=== PATIENT | female | born 1960 | race Caucasian/White ===

== ENCOUNTER 2020-11-16 00:58 | Inpatient (IN) | payer OTHER ==
[~2020-11-16] VITALS: Ht 160 cm; Wt 97.1 kg
--- NOTE | 2020-11-16 00:59 | NUR ---
PT AAOX4. BIBEMS FROM HOME C/O SYNCOPE AT HOME. PER PT DECREASE APPETITIE X12 DAYS, +DIARRHEA. PT PLACED IN BED 8 ON CURBING STONECUTTER AND PULSE OX. VSS. NO ACUTE DISTRESS NOTED.
--- NOTE | 2020-11-16 01:06 | NUR ---
PT PROVIDED WITH MORE BLANKETS. REMAINS ON CARIDAC MONITOR AND PULSE OX. PLACED IN COLLAR.
[2020-11-16] MEDS ORDERED: ONDANSETRON HCL/PF 4 MG/2 ML VIAL ONE (01:29)
[2020-11-16] MEDS ORDERED: ONDANSETRON HCL/PF 4 MG/2 ML VIAL IVP ONE (01:30)
[2020-11-16] MEDS ORDERED: IV NS 0.9% 1,000 ML BAG IV ONE (01:30)
[2020-11-16 01:46] LABS: BASOPHILS # (AUTO) 0.1 K/uL (0.0-0.2); BASOPHILS % (AUTO) 0.7 % (0.0-2.0); EOSINOPHILS % (AUTO) 1.3 % (0.0-6.0); HEMATOCRIT 37 % (33-45); LYMPHOCYTES # (AUTO) 3.7 K/uL (0.8-4.8); LYMPHOCYTES % (AUTO) 32.2 % (20.0-44.0); MEAN CORPUSCULAR HGB CONC 33 g/dl (31.0-36.0); MEAN CORPUSCULAR VOLUME 88 fL (82-100); MONOCYTES # (AUTO) 0.6 K/uL (0.1-1.30); MONOCYTES % (AUTO) 5.4 % (2.0-12.0); NEUTROPHILS # (AUTO) 6.9 K/uL (1.8-8.9); NEUTROPHILS % (AUTO) 60.4 % (43.0-81.0); PLATELET COUNT (AUTO) 264 K/uL (150-450); RED BLOOD CELL COUNT(AUTO) 4.16 MIL/uL (4.0-5.2); WHITE BLOOD COUNT (AUTO) 11.4 K/uL (4.3-11.0)
[2020-11-16 01:54] LABS: CALCIUM, SERUM 8.9 mg/dL (8.5-10.1); CARBON DIOXIDE 21 mmol/L (21-32); CHLORIDE 106 mmol/L (98-107); GLUCOSE 126 mg/dL (74-106); POTASSIUM 3.4 mmol/L (3.5-5.1); SODIUM SERUM 140 mmol/L (136-145); UREA NITROGEN, BLOOD 8 mg/dL (7-18)
[2020-11-16 02:00] LABS: ALANINE AMINOTRANSFERASE 21 U/L (12-78); ALBUMIN 3.4 g/dL (3.4-5.0); ALKALINE PHOSPHATASE 68 U/L (46-116); ASPARTATE AMINOTRANSFERASE 12 U/L (15-37); BILIRUBIN,DIRECT 0.1 mg/dL (0.0-0.2); BILIRUBIN,TOTAL 0.5 mg/dL (0.2-1.0); TOTAL PROTEIN, SERUM 7.2 g/dL (6.4-8.2)
--- NOTE | 2020-11-16 02:51 | NUR ---
PT REFUSES TO BE IN A C COLLAR. LUANA MYERS AWARE.
--- NOTE | 2020-11-16 03:00 | NUR ---
PT AMBULATED TO THE RESTROOM WITH STEADY GAIT.
[2020-11-16] MEDS ORDERED: HYDROCODONE/APAP 5/325MG TABLET ONE (03:28)
[2020-11-16] MEDS ORDERED: ACETAMINOPHEN ES 500 MG TABLET ONE (03:33)
--- NOTE | 2020-11-16 03:53 | NUR ---
PT DAUGHTER PHU .
--- NOTE | 2020-11-16 04:24 | NUR ---
DAUGHTER'S AT BEDSIDE. SPEAKING TO PT.
[2020-11-16] MEDS ORDERED: ACETAMINOPHEN 325 MG TABLET PO ONE (04:30)
[2020-11-16] MEDS ORDERED: IV NS 0.9% 1,000 ML IV ONE (04:30)
--- NOTE | 2020-11-16 05:00 | NUR ---
REPORT GIVEN TO JAKOB SCOTT FOR [facility]
--- NOTE | 2020-11-16 05:03 | NUR ---
[facility] PAGED FOR ADMISSION.
[2020-11-16] MEDS ORDERED: ATOR40TA PO (05:22)
[2020-11-16] MEDS ORDERED: METF-440 PO (05:22)
[2020-11-16] MEDS ORDERED: Z GUARD REMEDY 2 OZ OINT TP PRN (05:30)
[2020-11-16] MEDS ORDERED: MAGNESIUM HYDROXIDE 30 ML UDC PO PRN (05:30)
[2020-11-16] MEDS ORDERED: ACETAMINOPHEN 325 MG TABLET PO PRN (05:30)
[2020-11-16] MEDS ORDERED: IV NS 0.9% 1,000 ML IV PRN (05:30)
[2020-11-16] MEDS ORDERED: ONDANSETRON HCL/PF 4 MG/2 ML VIAL IVP PRN (05:30)
[2020-11-16] MEDS ORDERED: MAG HYDROX/AL HYDROX/SIMETH 30 ML UDC PO PRN (05:30)
--- NOTE | 2020-11-16 05:39 | NUR ---
PT TRANSFERED PER ACLS PROTOCOL
[2020-11-16 05:40] VITALS: BP_SYST 106; BP_SYST 107; BP_SYST 108; BP_DIAS 58; BP_DIAS 66; BP_DIAS 77
--- NOTE | 2020-11-16 05:40 | NUR ---
RN TELEHEALTH NOTE RECEIVED PATIENT VIA GURNEY. AMBULATED TO BED WITH STAND BY ASSISTANCE. GAIT IS STEADY BUT WEAK. PATIENT STATES SHE FEELS DIZZY. TOLERATING ROOM AIR. RESPIRATIONS ARE EVEN AND UNLABORED. NO S/S SOB NOTED. EXTERNAL TELE MONITOR READS SINUS RHYTHM HR 75. IN NO APPARENT DISTRESS. IV ACCESS IN RIGHT HAND#20 PATENT AND SALINE LOCKED. MANAGER SCIENCE OBTAINED VITALS SIGNS AND COMPLETED BELONGING LIST. INITIAL PHYSICAL ASSESSMENT COMPLETE AT THIS TIME, SKIN INTACT. BED IS LOW AND LOCKED, HOB ELEVATED IN SEMI FOWLERS,SIDE RAILS UP X2, CALL LIGHT WITHIN REACH, EXPLAINED USE. WILL CONTINUE TO MONITOR FOR REMAINDER OF SHIFT, AND ENDORSE TO ONCOMING SHIFT FOR CONTINUATION OF CARE.
[2020-11-16] MEDS ORDERED: PANTOPRAZOLE 40 MG TABLET.DR PO SCH (07:30)
[2020-11-16 08:00] VITALS: BP 114/59
[2020-11-16] MEDS: METRONIDAZOLE 500 MG TABLET PO SCH ×2 (08:07→14:24)
[2020-11-16 08:18] LABS: BILIRUBIN,URINE NEGATIVE (NEGATIVE); LEUKOCYTE ESTERASE ,URINE NEGATIVE (NEGATIVE); NITRITE, URINE NEGATIVE (NEGATIVE); PROTEIN,URINE NEGATIVE (NEGATIVE); UGLUCOSE NEGATIVE (NEGATIVE); UROBILINOGEN,URINE 0.2 EU/dL (0.2)
[2020-11-16 08:22] LABS: COLOR,URINE STRAW (YELLOW)
[2020-11-16] MEDS ORDERED: METFORMIN 500 MG TABLET PO SCH (09:00)
[2020-11-16] MEDS: POTASSIUM CHLORIDE 20 MEQ TAB.PRT.SR PO SCH ×3 (09:20→11:39)
[2020-11-16 09:40] LABS: MAGNESIUM 2.3 mg/dL (1.8-2.4)
[2020-11-16 09:44] LABS: RBC,URINE 0-2 /HPF (0-2); SQUAMOUS EPITHELIAL CELL,UR Few /HPF (None Seen); WBC,URINE 0-2 /HPF (0-3)
[2020-11-16 09:47] LABS: BACTERIA,URINE Few /HPF (None Seen)
[2020-11-16 09:56] LABS: THYROID STIMULATING HORMONE 4.517 uIU/mL (0.358-3.74)
[2020-11-16 12:00] VITALS: BP 146/69
[2020-11-16] MEDS ORDERED: INSULIN REGULAR, HUMAN 100 UNIT/ML 3 ML VIAL SQ PRN (15:30)
[2020-11-16] MEDS ORDERED: BLOOD SUGAR DIAGNOSTIC 1 EACH STRIP VI SCH (15:30)
[2020-11-16] MEDS ORDERED: DEXTROSE 50%-WATER 50 ML DISP.SYRIN IV PRN (15:30)
[2020-11-16] MEDS ORDERED: *INSULIN REGULAR(HUMULIN R)HUM 100 UNIT/ML VIAL SQ PRN (15:30)
[2020-11-16] MEDS ORDERED: METF-866 PO (15:44)
[2020-11-16 16:00] VITALS: BP 130/60
--- NOTE | 2020-11-16 17:01 | NUR ---
MANAGER RFID NOTE Cynthia is A/ox4, in no acute distress, VSS on room air. She has been medically cleared by MD for discharge. Skin remains intact. IV removed, ID band removed. All needs met, all due medications given. Independent with self-care. DC instructions given, verbalized understanding. Picked up by family en route to home. sill worker and MD aware.
[2020-11-16] MEDS ORDERED: ATORVASTATIN 40 MG TABLET PO SCH (22:00)
== END 2020-11-16 16:50 | disposition home or self-care (01) | DRG 48 ==
LOC: ER 00:58 → TELE1 05:28
PROVIDERS: ADMIT Internal Medicine; ATTEND Internal Medicine
DX: G90.8 Other disorders of autonomic nervous system (principal); E87.2 Acidosis; E11.9 Type 2 diabetes mellitus without complications; E78.5 Hyperlipidemia, unspecified; W18.30XA Fall on same level, unspecified, initial encounter; Y92.89 Other specified places as the place of occurrence of the external cause; I10 Essential (primary) hypertension; Z88.8 Allergy status to other drugs, medicaments and biological substances; E87.6 Hypokalemia; R19.7 Diarrhea, unspecified; T38.3X5A Adverse effect of insulin and oral hypoglycemic [antidiabetic] drugs, initial encounter; Y92.9 Unspecified place or not applicable
CPT/HCPCS: 36415; 70450-TC; 71045-TC; 72125-TC; 72220-TC; 80048-TC; 80061-TC; 80076-TC; 81001; 82728-TC; 83540-TC; 83735-TC; 84439-TC; 84443-TC; 84484-TC; 85025-TC; 85730-TC; 87045-TC; 87081-TC; 87177; 87209; 93307-TC; 93880-TC; C9803; G0378; J1815; J2405; J7030; L0172

== ENCOUNTER 2022-05-12 13:29 | Inpatient (IN) | payer MEDICAID, OTHER ==
[~2022-05-12] VITALS: Ht 157.5 cm; Wt 79.4 kg
[~2022-05-12 13:29] MED LIST: ATOR40TA PO; METF-866 PO
--- NOTE | 2022-05-12 13:45 | NUR ---
BIBDAUGHTER C/O DIZZINESS AND CHEST PAIN SINCE LAST NIGHT, GOT WORSE MANUFACTURING PROCESS ENGINEER WHILE LOOKING AT "PROPERTIES". AMBULATORY, PLACED IN BED, AAOX4, BREATHING EVEN AND UNLABORED SATURATING AT 98%RA, ATTACHED TO MONITOR SHOWS NORMAL SINUS RHYTHM AK- 75
--- NOTE | 2022-05-12 13:50 | NUR ---
tech at bedside for ekg
--- NOTE | 2022-05-12 14:01 | NUR ---
MOVE SHEET SUBMITTED.
--- NOTE | 2022-05-12 14:01 | NUR ---
BLOOD DRAWN AND SENT TO LAB
--- NOTE | 2022-05-12 14:04 | NUR ---
SWAB FOR COVID19 SENT TO LAB
[2022-05-12 14:09] LABS: BASOPHILS # (AUTO) 0.1 K/uL (0.0-0.2); BASOPHILS % (AUTO) 0.8 % (0.0-2.0); EOSINOPHILS % (AUTO) 1.5 % (0.0-6.0); HEMATOCRIT 41 % (33-45); HEMOGLOBIN 13.6 g/dL (11.5-14.8); LYMPHOCYTES # (AUTO) 2.5 K/uL (0.8-4.8); LYMPHOCYTES % (AUTO) 38.2 % (20.0-44.0); MEAN CORPUSCULAR HGB CONC 33 g/dl (31.0-36.0); MEAN CORPUSCULAR VOLUME 90 fL (82-100); MONOCYTES # (AUTO) 0.4 K/uL (0.1-1.30); NEUTROPHILS # (AUTO) 3.4 K/uL (1.8-8.9); NEUTROPHILS % (AUTO) 53.5 % (43.0-81.0); PLATELET COUNT (AUTO) 211 K/uL (150-450); RED BLOOD CELL COUNT(AUTO) 4.54 MIL/uL (4.0-5.2); WHITE BLOOD COUNT (AUTO) 6.4 K/uL (4.3-11.0)
[2022-05-12] MEDS ORDERED: FAMOTIDINE/PF INJ 20 MG/2 ML VIAL IV ONE ×2 (15:24→15:30)
[2022-05-12 15:31] LABS: CALCIUM, SERUM 9.1 mg/dL (8.5-10.1); CARBON DIOXIDE 26 mmol/L (21-32); CHLORIDE 105 mmol/L (98-107); CREATININE 1.2 mg/dL (0.6-1.3); GLUCOSE 116 mg/dL (74-106); SODIUM SERUM 140 mmol/L (136-145); UREA NITROGEN, BLOOD 8 mg/dL (7-18)
[2022-05-12] MEDS ORDERED: MORPHINE SULFATE INJ 2 MG/ML DISP.SYRIN ONE (15:49)
[2022-05-12 15:51] LABS: ALANINE AMINOTRANSFERASE 29 U/L (12-78); ALBUMIN 3.7 g/dL (3.4-5.0); ALKALINE PHOSPHATASE 59 U/L (46-116); ASPARTATE AMINOTRANSFERASE 16 U/L (15-37); BILIRUBIN,DIRECT 0.1 mg/dL (0.0-0.2); BILIRUBIN,TOTAL 0.5 mg/dL (0.2-1.0); TOTAL PROTEIN, SERUM 7.4 g/dL (6.4-8.2)
[2022-05-12] MEDS ORDERED: MORPHINE SULFATE INJ 2 MG/ML DISP.SYRIN IV ONE (16:00)
--- NOTE | 2022-05-12 16:45 | NUR ---
[facility] CALLED BOOK ILLUSTRATOR PAGED.
--- NOTE | 2022-05-12 17:09 | NUR ---
GOT BED 313-1 ADMITTING NOTIFIED.
[2022-05-12] MEDS ORDERED: Z GUARD REMEDY 4 OZ OINT TP PRN (17:30)
[2022-05-12] MEDS: ENOXAPARIN SODIUM 40 MG/0.4 ML DISP.SYRIN SQ SCH (17:30)
[2022-05-12] MEDS ORDERED: TEMAZEPAM 15 MG CAPSULE PO PRN (17:30)
[2022-05-12] MEDS ORDERED: MAGNESIUM HYDROXIDE 30 ML UDC PO PRN (17:30)
[2022-05-12] MEDS ORDERED: ONDANSETRON HCL/PF 4 MG/2 ML VIAL IVP PRN (17:30)
[2022-05-12] MEDS ORDERED: NITROGLYCERIN 0.4 MG/TAB BOTTLE SL PRN (17:30)
[2022-05-12] MEDS ORDERED: MAG HYDROX/AL HYDROX/SIMETH 30 ML UDC PO PRN (17:30)
--- NOTE | 2022-05-12 17:31 | NUR ---
REPORT GIVEN TO BRIJESH RN ROOM 312-1 FOR LUIS
[2022-05-12 18:00] VITALS: BP 139/72
[2022-05-12] MEDS ORDERED: MORPHINE SULFATE INJ 4 MG/ML DISP.SYRIN IV PRN (18:00)
[2022-05-12] MEDS: ACETAMINOPHEN 325 MG TABLET PO PRN (18:08)
--- NOTE | 2022-05-12 18:55 | NUR ---
VOIP ENGINEER NOTES PATIENT RECEIVED VIA RWOLF POINT. PATIENT IS A/O X 4. PATIENT IS BREATHING EVENLY AND UNLABORED ON ROOM AIR. WITH HEPLOCK RAC #20G. AT NO SIGNS OF DISTRESS NOTED. VITALS SIGNS OF BP:139/72, RR:20, NM:72, TEMP:98.6, O2 SAT:99%. PATIENT DENIES OPAIN OR DISCOMFORT AT THIS TIME.ATTACHED EXTERNAL MONITOR: SINUS RHYTHM AT 70S. SKIN ASSESSMENT PERFORMED. NO EDEMA PRESENT. BOWELS SOUNDS ACTIVE.PATIENT WAS ORIENTED TO ROOM AND HOW TO USE CALL LIGHT. BELONGINGS ACCOUNTED FOR. SAFETY MEASURES IN PLACE; BED IN LOW, LOCKED POSITION; SIDE RAILS UP X 2;WILL ENDORSED TO SPECIAL DELIVERY CLERK FOR [facility]
[2022-05-12 20:00] VITALS: BP_SYST 120; BP_SYST 125; BP_DIAS 42; BP_DIAS 62
--- NOTE | 2022-05-12 20:35 | NUR ---
LEAF BLENDER NOTES RECEIVED LYING ON BED A/O X4,BREATHING NORMAL,RUSSELL CHEST PAIN BUT PAIN ON RIGHT SIDE OF HER NECK.SALINE LOCK RIGHT AC INTACT AND PATENT.NOTED SKIN TAG,APPEARS INFECTED ON RIGHT UPPER THIGH,SMALL BLISTER THE POP OUT BELOW RIGHT BREAST,WITH SLIGHT REDNESS NOTED.CALL LIGHT IN REACH,NEEDS ANTICIPATED.
--- NOTE | 2022-05-12 21:45 | NUR ---
WATCHSTANDER NOTES FEELING HUNGRY,GIVEN TUNA SANDWICH AND WARM TEA PER PATIENT REQUEST.
[2022-05-12] MEDS: HYDROCODONE/APAP 5/325MG TABLET PO PRN (22:01)
--- NOTE | 2022-05-12 22:01 | NUR ---
LEAF STRIPPER NOTES PAIN MANAGEMENT C/O PAIN RIGHT SHOULDER,LEFT SIDE RIBS 6/10 ON PAIN SCALE.MEDICATED WITH NORCO 5/325MG,1TAB PO ORDERED.
[2022-05-13] VITALS: BP 103/49
[2022-05-13] MEDS: ACETAMINOPHEN 325 MG TABLET PO PRN ×2 (03:11→10:24)
--- NOTE | 2022-05-13 03:11 | NUR ---
SHAKE SAWYER NOTES HAVING HEADACHE,TYLENOL 650MG PO GIVEN FOR MILD PAIN. ABD PER PATIENT REQUEST.
[2022-05-13 06:32] LABS: BASOPHILS % (AUTO) 0.7 % (0.0-2.0); EOSINOPHILS % (AUTO) 2.4 % (0.0-6.0); HEMATOCRIT 37 % (33-45); HEMOGLOBIN 12.3 g/dL (11.5-14.8); LYMPHOCYTES % (AUTO) 53.2 % (20.0-44.0); MEAN CORPUSCULAR HGB CONC 33 g/dl (31.0-36.0); MEAN CORPUSCULAR VOLUME 90 fL (82-100); MONOCYTES # (AUTO) 0.5 K/uL (0.1-1.30); MONOCYTES % (AUTO) 8.1 % (2.0-12.0); NEUTROPHILS % (AUTO) 35.6 % (43.0-81.0); PLATELET COUNT (AUTO) 174 K/uL (150-450); RED BLOOD CELL COUNT(AUTO) 4.09 MIL/uL (4.0-5.2); WHITE BLOOD COUNT (AUTO) 5.7 K/uL (4.3-11.0)
[2022-05-13 06:36] LABS: CALCIUM, SERUM 8.6 mg/dL (8.5-10.1); CREATININE 0.9 mg/dL (0.6-1.3); MAGNESIUM 2.2 mg/dL (1.8-2.4); PHOSPHORUS 5.3 mg/dL (2.5-4.9); POTASSIUM 3.6 mmol/L (3.5-5.1)
--- NOTE | 2022-05-13 06:45 | NUR ---
FUNDRAISING SALE REPRESENTATIVE NOTES FAIRLY RESTED AT NIGHT,HEADACHE IMPROVED WITH TYLENOL,NO EPISODE OF CHEST PAIN,CALL LIGHT IN REACH,NEEDS ATTENDED.
--- NOTE | 2022-05-13 07:15 | NUR ---
CONE BAKER MACHINE NOTES RECEIVED PATIENT A/O X 4, ABLE TO MAKE NEEDS KNOWN. PATIENT IS ON ROOM AIR, BREATHING EVENLY AND UNLABORED, WITH NO SIGNS OF RESPIRATORY DISTRESS. WITH HEPLOCK RAC #20G, ON SALINE, PATENT AND INTACT. ON EXTERNAL SALESPERSON HEARING AIDS: SINUS RHYTHM AT 60S. SAFETY MEASURES IN PLACE; BED IN LOW, LOCKED POSITION; SIDE RAILS UP X 2, CALL LIGHT WITHIN REACH AT ALL TIMES; WILL CONTINUE WITH PLAN OF CARE.
[2022-05-13 07:37] LABS: THYROID STIMULATING HORMONE 2.906 uIU/mL (0.358-3.74)
[2022-05-13 07:57] LABS: CHOLESTEROL 230 mg/dL (<200); HDL CHOLESTEROL 48 mg/dL (40-60); LDL 123 mg/dL (0-99); TRIGLYCERIDES 164 mg/dL (30-150)
[2022-05-13 08:00] VITALS: BP 114/60
[2022-05-13] MEDS: PANTOPRAZOLE 40 MG TABLET.DR PO SCH (08:00)
[2022-05-13] MEDS ORDERED: ASPIRIN 81 MG TAB.CHEW PO SCH (09:00)
[2022-05-13] MEDS ORDERED: IOHEXOL-350 100 ML VIAL IV ONE (10:39)
[2022-05-13] MEDS ORDERED: METOPROLOL TARTRATE INJ 5 MG/5 ML AMPUL ONE (10:40)
[2022-05-13] MEDS ORDERED: NITROGLYCERIN 0.4 MG/TAB BOTTLE ONE (10:40)
[2022-05-13] MEDS ORDERED: CT SWABBABLE VALVE TRANS SET 1 EA INFUS.SET MC ONE (10:40)
[2022-05-13] MEDS ORDERED: IV NS 0.9% 250 ML IV ONE (10:40)
[2022-05-13] MEDS ORDERED: NITROGLYCERIN 0.4 MG/TAB BOTTLE SL ONE (11:00)
[2022-05-13] MEDS ORDERED: METOPROLOL TARTRATE INJ 5 MG/5 ML AMPUL IVP PRN (11:00)
[2022-05-13 12:00] VITALS: BP 101/55
[2022-05-13] MEDS: HYDROCODONE/APAP 5/325MG TABLET PO PRN ×2 (14:27→20:06)
[2022-05-13] MEDS ORDERED: ALPRAZOLAM 0.25 MG TABLET PO PRN (15:30)
[2022-05-13 16:00] VITALS: BP 119/71
[2022-05-13] MEDS ORDERED: CALCIUM CARBONATE 500 MG TAB.CHEW PO PRN (17:00)
--- NOTE | 2022-05-13 18:48 | NUR ---
REPORTING PROCESS CONSULTANT CLOSING NOTES PATIENT A/O X 4, ABLE TO MAKE NEEDS KNOWN. PATIENT IS ON ROOM AIR, BREATHING EVENLY AND UNLABORED, WITH NO SIGNS OF RESPIRATORY DISTRESS. WITH HEPLOCK RAC #20G, ON SALINE, PATENT AND INTACT. ON EXTERNAL REGIONAL SALES REPRESENTATIVE: SINUS RHYTHM AT 60S. SAFETY MEASURES IN PLACE; BED IN LOW, LOCKED POSITION; SIDE RAILS UP X 2, CALL LIGHT WITHIN REACH AT ALL TIMES; WILL ENDORSE TO NEXT SHIFT FOR CONTINUITY OF CARE.
[2022-05-13 20:00] VITALS: BP 103/60
--- NOTE | 2022-05-13 20:39 | NUR ---
received in bed alert and orientated talkative about her health snack given upon her request moving all extremities review the call light with the patient
[2022-05-13] MEDS: ENOXAPARIN SODIUM 40 MG/0.4 ML DISP.SYRIN SQ SCH (21:00)
--- NOTE | 2022-05-14 04:24 | NUR ---
CLOSING NOTES: IN BED LYING ON HER LEFT SIDE AT THIS TIME ASLEEP RESP EVEN AND UNLABORED ON TELE SR ON THE MONITOR THIS NIGHT MEDICATED X1 FOR PAIN AND EFFECTIVE NORCO TAB 1
[2022-05-14] MEDS: PANTOPRAZOLE 40 MG TABLET.DR PO SCH (07:46)
[2022-05-14 08:00] VITALS: BP_SYST 122; BP_DIAS 79; BP_DIAS 89
--- NOTE | 2022-05-14 08:00 | NUR ---
RN OPENING NOTES RECEIVED PATIENT IN BED A/O X 4. PATIENT IS BREATHING EVENLY AND UNLABORED ON ROOM AIR. WITH SALINE LOCK RAC #20G. NO SIGNS OF DISTRESS NOTED. VITALS SIGNS OF BP:122/89, HR 63, RR15, TEMP. 97.8, O2 SATURATION 100%. PATIENT DENIES PAIN OR DISCOMFORT AT THIS TIME.ATTACHED EXTERNAL MONITOR: SINUS RHYTHM AT 70S. NO EDEMA PRESENT. BOWELS SOUNDS ACTIVE.PATIENT IS ORIENTED. SAFETY MEASURES IN PLACE; BED IN LOW, LOCKED, CALL LIGHT WITHIN PATIENTS REACH.
--- NOTE | 2022-05-14 08:30 | NUR ---
RN NOTES PATIENT IS TRANSFERRED TO [facility]. TELEMETRY MONITORING IS DISCONTINUED PER DOCTORS ADVICE.
--- NOTE | 2022-05-14 08:40 | NUR ---
MS RN NOTE SEEN BY DR. SAWYER DISCUSSED RESULTS TO PATIENT AND DISCHARGE INSTRUCTIONS.
[2022-05-14] MEDS ORDERED: ATORVASTATIN 10 MG TABLET PO SCH (09:00)
[2022-05-14] MEDS: ACETAMINOPHEN 325 MG TABLET PO PRN (10:18)
--- NOTE | 2022-05-14 10:20 | NUR ---
RN NOTES PATIENT COMPLAINS FOR PAIN ON HER LEFT SHOULDER. HYDROCODONE IS TO BE GIVEN BUT PATIENT CHANGED HER MIND AND WANTED XANAX AND TYLENOL INSTEAD. HYDROCODONE IS DISPOSED IN THE RX ELIMINATOR SOLUTION AND WAS WITNESSED BY ANOTHER RN AND WAS DOCUMENTED
[2022-05-14] MEDS ORDERED: ATOR10TA PO (10:25)
[2022-05-14 12:00] VITALS: BP 122/79
--- NOTE | 2022-05-14 12:30 | NUR ---
MS RN NOTE REFUSED TO HAVE PICTURES TAKEN AT THIS POINT BUT WAS SEEN BY MATHEW OF WOUND TEAM.
--- NOTE | 2022-05-14 13:07 | NUR ---
MS COMMERCIAL MANAGER NOTES RECEIVED DISCHARGE ORDER. PATIENT IS A/O X4, ABLE TO MAKE NEEDS KNOWN. SALINE LOCK FROM RIGHT FOREARM IS REMOVED. PATIENT IS BREATHING EVENLY AND UNLABORED ON ROOM AIR. NO SIGNS OF DISTRESS NOTED. PATIENT DOES NOT COMPLAIN ANY PAIN THIS TIME. PATIENT WAS GIVEN DISCHARGE INSTRUCTIONS BOTH VERBALLY AND IN WRITTEN FORM. PATIENT VERBALIZES UNDERSTANDING. PATIENT BELONGING ACCOUNTED FOR, PATIENT BELONGING CHECK LIST SIGNED. PATIENT LEFT THE UNIT IN A STABLE CONDITION. PATIENT IS ACCOMPANIED BY CONTINUOUS IMPROVEMENT DIRECTOR TO THE LOBBY PATIENT LEFT VIA PRIVATE CAR WITH HER DAUGHTER.
== END 2022-05-14 13:30 | disposition home or self-care (01) | DRG 203 ==
LOC: ER 13:33 → TELE 17:17 → MED 05-14 10:09
PROVIDERS: ADMIT Nurse Practitioner Acute Care; ATTEND Internal Medicine
DX: M94.0 Chondrocostal junction syndrome [Tietze] (principal); E32.8 Other diseases of thymus; E11.42 Type 2 diabetes mellitus with diabetic polyneuropathy; Z20.822 Contact with and (suspected) exposure to COVID-19; E78.5 Hyperlipidemia, unspecified; I10 Essential (primary) hypertension; K21.9 Gastro-esophageal reflux disease without esophagitis; Z88.1 Allergy status to other antibiotic agents; Z98.891 History of uterine scar from previous surgery; F41.9 Anxiety disorder, unspecified; F17.210 Nicotine dependence, cigarettes, uncomplicated; E66.9 Obesity, unspecified; Z68.32 Body mass index [BMI] 32.0-32.9, adult; E04.2 Nontoxic multinodular goiter; Z88.6 Allergy status to analgesic agent
CPT/HCPCS: 36415; 71045-TC; 75574; 76536-TC; 80048-TC; 80061-TC; 80076-TC; 82962-TC; 83735-TC; 83880; 84100-TC; 84443-TC; 84484-TC; 85025-TC; 87081-TC; 93307-TC; C9803; G0378; J1650; J2270; J3490; J7050; Q9967

== ENCOUNTER 2022-06-13 14:51 | Emergency (ER) | payer MEDICAID, OTHER ==
[~2022-06-13] VITALS: Ht 160 cm; Wt 79.4 kg
[~2022-06-13 14:51] MED LIST changes: +ATOR10TA PO; -ATOR40TA PO; -METF-866 PO
--- NOTE | 2022-06-13 15:44 | NUR ---
DR SCHAEFER AT BEDSIDE
--- NOTE | 2022-06-13 16:40 | NUR ---
COVID SWAB, FLU SWAB AND STREP SWAB COLLECTED AND SENT TO LAB
--- NOTE | 2022-06-13 17:38 | NUR ---
US TECH AT BEDSIDE. NEGATIVE FOR BLOOD CLOTS
[2022-06-13] MEDS ORDERED: IBUP-1955 PO (19:47)
[2022-06-13 20:01] VITALS: BP 131/81
--- NOTE | 2022-06-13 20:01 | NUR ---
Patient discharged to home in stable condition. Written and verbal after care instructions given. Patient verbalizes understanding of instruction.
== END 2022-06-13 20:02 | disposition home or self-care (01) ==
LOC: ER 15:02
DX: R68.84 Jaw pain (principal); I88.9 Nonspecific lymphadenitis, unspecified; M79.605 Pain in left leg; E78.5 Hyperlipidemia, unspecified; I10 Essential (primary) hypertension; K21.9 Gastro-esophageal reflux disease without esophagitis; E11.9 Type 2 diabetes mellitus without complications; Z88.6 Allergy status to analgesic agent; Z88.1 Allergy status to other antibiotic agents; Z79.899 Other long term (current) drug therapy; Z20.822 Contact with and (suspected) exposure to COVID-19
CPT/HCPCS: 99284; 93971; 87426; 87804 ×2; 87880; C9803; 86403-TC

== ENCOUNTER 2022-10-27 05:34 | Emergency (ER) | payer MEDICAID, OTHER ==
[~2022-10-27] VITALS: Ht 157.5 cm; Wt 78.9 kg
[~2022-10-27 05:34] MED LIST changes: +IBUP-1955 PO
--- NOTE | 2022-10-27 06:00 | NUR ---
URINE SPECIMEN SENT TO LAB
--- NOTE | 2022-10-27 06:00 | NUR ---
[id number] FROM HOME WITH INITIAL COMPLAINT OF SEVERE ABDOMINAL PAIN (GASSY) CASINO FLOOR PERSON. NO MEDS GIVEN AT HOME, BROUGHT TO ER. PATIENT PASS GAS AND WAS RELIEVE. NO PAIN AT THE MOMENT DURING ASSESSMENT. PATIENT IS AOX4. ABLE TO MAKE NEEDS KNOWN. ACCOMPANIED BY DAUGHTER. VITALS CHECKED.
--- NOTE | 2022-10-27 06:10 | NUR ---
IV YULIANA G20 INSERTED ON LEFT UPPER ARM. BLOOD DRAWN AND SENT TO LAB
--- NOTE | 2022-10-27 06:19 | NUR ---
CENTERLESS GRINDER OPERATOR AT BEDSIDE
[2022-10-27 06:33] LABS: BASOPHILS # (AUTO) 0.1 K/uL (0.0-0.2); BASOPHILS % (AUTO) 1.2 % (0.0-2.0); EOSINOPHILS % (AUTO) 1.6 % (0.0-6.0); HEMATOCRIT 37 % (33-45); HEMOGLOBIN 12.3 g/dL (11.5-14.8); LYMPHOCYTES # (AUTO) 2.5 K/uL (0.8-4.8); MEAN CORPUSCULAR HGB CONC 33 g/dl (31.0-36.0); MEAN CORPUSCULAR VOLUME 90 fL (82-100); MONOCYTES # (AUTO) 0.4 K/uL (0.1-1.30); MONOCYTES % (AUTO) 6.4 % (2.0-12.0); NEUTROPHILS # (AUTO) 2.6 K/uL (1.8-8.9); NEUTROPHILS % (AUTO) 46.8 % (43.0-81.0); PLATELET COUNT (AUTO) 214 K/uL (150-450); RED BLOOD CELL COUNT(AUTO) 4.15 MIL/uL (4.0-5.2); WHITE BLOOD COUNT (AUTO) 5.6 K/uL (4.3-11.0)
--- NOTE | 2022-10-27 06:33 | NUR ---
EKG DONE AT BEDSIDE
[2022-10-27 06:48] LABS: CALCIUM, SERUM 8.9 mg/dL (8.5-10.1); CARBON DIOXIDE 24 mmol/L (21-32); CHLORIDE 106 mmol/L (98-107); GLUCOSE 121 mg/dL (74-106); POTASSIUM 3.6 mmol/L (3.5-5.1); SODIUM SERUM 141 mmol/L (136-145); UREA NITROGEN, BLOOD 12 mg/dL (7-18)
[2022-10-27 06:58] LABS: ALANINE AMINOTRANSFERASE 21 U/L (12-78); ALBUMIN 3.5 g/dL (3.4-5.0); ALKALINE PHOSPHATASE 71 U/L (46-116); ASPARTATE AMINOTRANSFERASE 11 U/L (15-37); BILIRUBIN,DIRECT 0.1 mg/dL (0.0-0.2); BILIRUBIN,TOTAL 0.5 mg/dL (0.2-1.0); LIPASE 385 U/L (73-393); TOTAL PROTEIN, SERUM 7.1 g/dL (6.4-8.2)
[2022-10-27 07:50] VITALS: BP 125/88; TEMP 97.9
[2022-10-27] MEDS ORDERED: HYDR-4275 PO ×2 (07:53→10:40)
[2022-10-27] MEDS ORDERED: ONDA4TAB5 PO ×2 (07:53→10:40)
--- NOTE | 2022-10-27 08:02 | NUR ---
IV removed. Catheter intact and site benign. Pressure and 4x4 applied to site. No bleeding noted.Patient discharged to home in stable condition. Written and verbal after care instructions given. Patient verbalizes understanding of instruction.
[2022-10-27 08:39] LABS: BILIRUBIN,URINE NEGATIVE (NEGATIVE); COLOR,URINE YELLOW (YELLOW); LEUKOCYTE ESTERASE ,URINE NEGATIVE (NEGATIVE); NITRITE, URINE NEGATIVE (NEGATIVE); PH,URINE 6.5 (5.0-8.0); PROTEIN,URINE NEGATIVE (NEGATIVE); UGLUCOSE NEGATIVE (NEGATIVE); UROBILINOGEN,URINE 0.2 EU/dL (0.2)
== END 2022-10-27 08:04 | disposition home or self-care (01) ==
LOC: ER 05:36
DX: K80.50 Calculus of bile duct without cholangitis or cholecystitis without obstruction (principal); I10 Essential (primary) hypertension; E78.5 Hyperlipidemia, unspecified; K21.9 Gastro-esophageal reflux disease without esophagitis; F17.200 Nicotine dependence, unspecified, uncomplicated; Z88.8 Allergy status to other drugs, medicaments and biological substances
CPT/HCPCS: 36415; 71045-TC; 76705-TC; 80048-TC; 80076-TC; 83690-TC; 84484-TC; 85025-TC

== ENCOUNTER 2023-09-04 18:46 | Emergency (ER) | payer MEDICAID ==
[~2023-09-04] VITALS: Ht 160 cm; Wt 83.9 kg
[~2023-09-04 18:46] MED LIST changes: +HYDR-4275 PO; +ONDA4TAB5 PO
[2023-09-04 18:56] VITALS: TEMP 98.6
[2023-09-04 19:47] LABS: BASOPHILS # (AUTO) 0.1 K/uL (0.0-0.2); BASOPHILS % (AUTO) 0.7 % (0.0-2.0); EOSINOPHILS # (AUTO) 0.1 K/uL (0.0-0.7); EOSINOPHILS % (AUTO) 1.8 % (0.0-6.0); HEMATOCRIT 35 % (33-45); HEMOGLOBIN 11.8 g/dL (11.5-14.8); LYMPHOCYTES # (AUTO) 2.4 K/uL (0.8-4.8); LYMPHOCYTES % (AUTO) 34.5 % (20.0-44.0); MEAN CORPUSCULAR HEMOGLOBIN 29 PG (26.0-33.0); MEAN CORPUSCULAR HGB CONC 34 g/dl (31.0-36.0); MEAN CORPUSCULAR VOLUME 87 fL (82-100); MONOCYTES # (AUTO) 0.5 K/uL (0.1-1.30); MONOCYTES % (AUTO) 6.8 % (2.0-12.0); NEUTROPHILS % (AUTO) 56.2 % (43.0-81.0); PLATELET COUNT (AUTO) 179 K/uL (150-450); RED BLOOD CELL COUNT(AUTO) 4.03 MIL/uL (4.0-5.2); RED CELL DISTRIBUTION WIDTH 13.4 % (11.5-15.0); WHITE BLOOD COUNT (AUTO) 7.1 K/uL (4.3-11.0)
[2023-09-04] MEDS ORDERED: KETOROLAC TROMETHAMINE 15 MG/ML VIAL ONE (19:51)
[2023-09-04] MEDS ORDERED: SUMATRIPTAN SUCCINATE 6 MG/0.5 ML VIAL SQ ONE (19:51)
[2023-09-04] MEDS ORDERED: METOCLOPRAMIDE HCL 10 MG/2 ML VIAL ONE (19:52)
[2023-09-04] MEDS: KETOROLAC TROMETHAMINE 15 MG/ML VIAL IV ONE (19:53)
[2023-09-04] MEDS: SUMATRIPTAN SUCCINATE 6 MG/0.5 ML VIAL SQ ONE (19:53)
[2023-09-04] MEDS: IV NS 0.9% 1,000 ML BAG IV ONE (19:53)
[2023-09-04] MEDS: METOCLOPRAMIDE HCL 10 MG/2 ML VIAL IV ONE (19:53)
[2023-09-04 19:56] LABS: CALCIUM, SERUM 8.4 mg/dL (8.5-10.1); CARBON DIOXIDE 24 mmol/L (21-32); CHLORIDE 104 mmol/L (98-107); GLUCOSE 108 mg/dL (74-106); POTASSIUM 3.5 mmol/L (3.5-5.1); SODIUM SERUM 135 mmol/L (136-145); UREA NITROGEN, BLOOD 8 mg/dL (7-18)
[2023-09-04 20:02] LABS: ALANINE AMINOTRANSFERASE 28 U/L (12-78); ALBUMIN 3.2 g/dL (3.4-5.0); ALKALINE PHOSPHATASE 61 U/L (46-116); ASPARTATE AMINOTRANSFERASE 14 U/L (15-37); BILIRUBIN,DIRECT 0.1 mg/dL (0.0-0.2); BILIRUBIN,TOTAL 0.3 mg/dL (0.2-1.0); TOTAL PROTEIN, SERUM 6.8 g/dL (6.4-8.2)
[2023-09-04] MEDS ORDERED: SUMA100T PO (21:35)
[2023-09-04] MEDS ORDERED: METO-295 PO (21:35)
[2023-09-04 23:24] VITALS: BP 130/80; O2SAT 99
== END 2023-09-04 23:25 | disposition home or self-care (01) ==
LOC: ER 18:54
DX: I10 Essential (primary) hypertension (principal); R51.9 Headache, unspecified; E78.5 Hyperlipidemia, unspecified; K21.9 Gastro-esophageal reflux disease without esophagitis; Z79.899 Other long term (current) drug therapy
CPT/HCPCS: 99285; 96374; 70450; 71045; 96361; 96375; 93005; 85025; 80048; 80076; 36415; 84484; 96372; J3030; J2765; J7030; A4223; J1885

== ENCOUNTER 2023-10-28 12:48 | Emergency (ER) | payer MEDICAID ==
[~2023-10-28] VITALS: Ht 160 cm; Wt 88.5 kg
[~2023-10-28 12:48] MED LIST changes: +METO-295 PO; +SUMA100T PO
[2023-10-28 13:21] LABS: BASOPHILS # (AUTO) 0.1 K/uL (0.0-0.2); EOSINOPHILS # (AUTO) 0.1 K/uL (0.0-0.7); EOSINOPHILS % (AUTO) 1.5 % (0.0-6.0); HEMATOCRIT 40 % (33-45); HEMOGLOBIN 13.3 g/dL (11.5-14.8); LYMPHOCYTES # (AUTO) 2.3 K/uL (0.8-4.8); LYMPHOCYTES % (AUTO) 32.6 % (20.0-44.0); MEAN CORPUSCULAR HEMOGLOBIN 29 PG (26.0-33.0); MEAN CORPUSCULAR HGB CONC 33 g/dl (31.0-36.0); MEAN CORPUSCULAR VOLUME 88 fL (82-100); MONOCYTES # (AUTO) 0.5 K/uL (0.1-1.30); NEUTROPHILS % (AUTO) 57.9 % (43.0-81.0); PLATELET COUNT (AUTO) 213 K/uL (150-450); RED BLOOD CELL COUNT(AUTO) 4.58 MIL/uL (4.0-5.2); RED CELL DISTRIBUTION WIDTH 13.7 % (11.5-15.0); WHITE BLOOD COUNT (AUTO) 6.9 K/uL (4.3-11.0)
[2023-10-28 13:27] LABS: CALCIUM, SERUM 9.3 mg/dL (8.5-10.1); CREATININE 0.9 mg/dL (0.6-1.3); POTASSIUM 4.1 mmol/L (3.5-5.1)
[2023-10-28 13:33] LABS: ALBUMIN 3.6 g/dL (3.4-5.0); BILIRUBIN,DIRECT 0.1 mg/dL (0.0-0.2); BILIRUBIN,TOTAL 0.6 mg/dL (0.2-1.0); TOTAL PROTEIN, SERUM 7.9 g/dL (6.4-8.2)
[2023-10-28 15:23] LABS: APPEARANCE,URINE CLEAR (CLEAR); BILIRUBIN,URINE NEGATIVE (NEGATIVE); BLOOD, URINE NEGATIVE Ery/uL (NEGATIVE); COLOR,URINE YELLOW (YELLOW); KETONES,URINE NEGATIVE (NEGATIVE); LEUKOCYTE ESTERASE ,URINE 1+ (NEGATIVE); NITRITE, URINE NEGATIVE (NEGATIVE); PH,URINE 6.5 (5.0-8.0); PROTEIN,URINE NEGATIVE (NEGATIVE); UGLUCOSE NEGATIVE (NEGATIVE); UROBILINOGEN,URINE 0.2 EU/dL (0.2)
[2023-10-28 15:37] LABS: ADD URINE CULTURE YES; BACTERIA,URINE 1+ /HPF (None Seen); RBC,URINE 0-2 /HPF (0-2); SQUAMOUS EPITHELIAL CELL,UR Few /HPF (None Seen)
[2023-10-28] MEDS ORDERED: ONDA4TAB5 PO (16:08)
[2023-10-28] MEDS ORDERED: CEFD300C3 PO (16:08)
[2023-10-28 16:29] VITALS: BP 133/66; TEMP 98.2; O2SAT 100
== END 2023-10-28 16:30 | disposition home or self-care (01) ==
LOC: ER 13:08
DX: N39.0 Urinary tract infection, site not specified (principal); R30.0 Dysuria; R10.2 Pelvic and perineal pain; R35.0 Frequency of micturition; R11.0 Nausea; I10 Essential (primary) hypertension; E78.5 Hyperlipidemia, unspecified; K21.9 Gastro-esophageal reflux disease without esophagitis; F17.200 Nicotine dependence, unspecified, uncomplicated; Z88.8 Allergy status to other drugs, medicaments and biological substances
CPT/HCPCS: 36415; 80048-TC; 80076-TC; 81001; 83690-TC; 85025-TC; 87086-TC